=== PATIENT | male | born 1970 | race Caucasian/White ===

== ENCOUNTER 2021-07-23 09:03 | Day surgery (SDC) | payer OTHER ==
[~2021-07-23] VITALS: Ht 179.1 cm; Wt 89.4 kg
[2021-07-23] MEDS ORDERED: DERMASARRA TP (09:21)
[2021-07-23] MEDS ORDERED: ZYRTEC 10MG10 MG PO (09:22)
[2021-07-23] MEDS ORDERED: HCTZ 25MG TAB25 MG PO (09:22)
[2021-07-23] MEDS ORDERED: NEXIUM 40MG40 MG PO (09:22)
[2021-07-23] MEDS ORDERED: ZOCOR 20MG20 MG PO (09:23)
[2021-07-23] MEDS ORDERED: ZTLIDO1 EACH TP (09:23)
[2021-07-23] MEDS ORDERED: ONE-A-DAY ESSE1 EACH PO (09:23)
[2021-07-23] MEDS ORDERED: ZOFRAN8 MG PO (09:23)
[2021-07-23] MEDS ORDERED: COZAAR100 MG PO (09:23)
[2021-07-23] MEDS ORDERED: FLOMAX 0.40.4 MG/CAP PO (09:24)
[2021-07-23 10:14] VITALS: BP 119/75; PULSE 67; TEMP 97.5
[2021-07-23 10:41] VITALS: BP 102/73; PULSE 64; TEMP 97.3
--- NOTE | 2021-07-23 10:41 | NUR ---
PATIENT TRANSPORTED PER CART FROM GI SUITE TO BAY 6 ACCOMPANIED BY ENDO RN. MONITORS APPLIED. VSS ON ROOM AIR. IN ROOM. PATIENT TALKS WITH STAFF AND . DENIES DISCOMFORT AND NAUSEA. VERBALREPORT RECEIVED.
[2021-07-23 11:00] VITALS: BP 112/73; PULSE 62
--- NOTE | 2021-07-23 11:00 | NUR ---
VSS ON ROOM AIR. PATIENT TOLERATES FOOD AND DRINK WITHOUT PROBLEMS. TALKS WITH . GIVEN A SECOND MUFFIN.
[2021-07-23 11:15] VITALS: BP 110/65; PULSE 64
--- NOTE | 2021-07-23 11:16 | NUR ---
VSS ON ROOM AIR. PATIENT AND TALKING AND WATCHING TV. DENIES DISCOMFORT. DISCHARGE INSTRUCTIONS GIVEN VERBAL AND DISCHARGE PACKET PROVIDED TO . QUESTIONS ANSWERED AND PATIENT VOICED UNDERSTANDING.
[2021-07-23 11:30] VITALS: BP 109/63; PULSE 56
--- NOTE | 2021-07-23 11:50 | NUR ---
DR MANLEY IN ROOM AND SPEAKS WITH PATIENT AND . PATIENT CHANGES INTO STREET CLOTHES. PATIENT DISCHARGED PER WHEEL CHAIR ACCOMPANIED BY AMB RN TO PRIVATE VECHILE DRIVEN BY .
== END 2021-07-23 11:15 | disposition home or self-care (01) ==
LOC: SDCO 09:03
DX: Z12.11 Encounter for screening for malignant neoplasm of colon (principal); K22.70 Barrett's esophagus without dysplasia; K21.9 Gastro-esophageal reflux disease without esophagitis; I10 Essential (primary) hypertension; E78.5 Hyperlipidemia, unspecified; F32.9 Major depressive disorder, single episode, unspecified; F41.9 Anxiety disorder, unspecified; M19.90 Unspecified osteoarthritis, unspecified site; Z86.010 Personal history of colon polyps
CPT/HCPCS: J2704

== ENCOUNTER 2024-09-06 08:51 | Day surgery (SDC) | payer OTHER ==
[~2024-09-06] VITALS: Ht 179.1 cm; Wt 86.1 kg
[~2024-09-06 08:51] MED LIST: COZAAR100 MG PO; DERMASARRA TP; FLOMAX 0.40.4 MG/CAP PO; HCTZ 25MG TAB25 MG PO; LR 1,000 ML IV SCH; NEXIUM 40MG40 MG PO; ONE-A-DAY ESSE1 EACH PO; Ondansetron 4 MG/2 ML VIAL IV PRN; ZOCOR 20MG20 MG PO; ZOFRAN8 MG PO; ZTLIDO1 EACH TP; ZYRTEC 10MG10 MG PO
[2024-09-06 09:29] VITALS: BP 135/85; PULSE 77; TEMP 97.8
--- NOTE | 2024-09-06 09:34 | NUR ---
Patient admitted to [facility]. Admission assessments complete. Consent signed. Pharmacy, allergies, and medications confirmed. VSS. 20G Iv inserted into RAC on second attempt. forrest to bedside. Call light within reach. Denies complaints.
[2024-09-06] MEDS ORDERED: Lidocaine PF 2% (20 MG/ML) 5 ML VIAL ONE (10:23)
[2024-09-06 10:50] VITALS: BP 112/78; PULSE 78; TEMP 98.4
--- NOTE | 2024-09-06 10:50 | NUR ---
RETURNS TO ROOM 9 PER CART AND TRANSFERS FROM CART TO RECLINER. IVF INFUSING. TAKING JUICE. DENIES DIFFICULTY SWALLOWING OR NAUSEA. CALL LIGHT IN REACH. 1051 DR. MANLEY HERE AND TALKS WITH THE PATIENT. ALL QUESTIONS ANSWERED.
[2024-09-06 11:00] VITALS: BP 126/71; PULSE 72
--- NOTE | 2024-09-06 11:00 | NUR ---
RESTING AND TOLERATES SNACK. CONTINUES TO DENY DIFFICULTY SWALLOWING. 1110 DISCHARGE INSTRUCTIONS GIVEN AND VOICES UNDERSTANDING OF THESE. 1113 IV DISCONTINUED AND SITE IS FREE OF REDNESS. PATIENT DRESSING. 1120 PATIENT DISCHARGED TO HOME DRIVEN BY SPOUSE. TAKEN TO CAR PER WHEELCHAIR AND ASSISTED INTO VEHICLE.
[2024-09-06] MEDS ORDERED: VOLTAREN GEL 1%1 TU TP (11:28)
[2024-09-06] MEDS ORDERED: IBU800 M1 PO (11:28)
[2024-09-06] MEDS ORDERED: MAG-OX 400400 MG/TAB PO (11:29)
[2024-09-06] MEDS ORDERED: K-DUR20 MEQ PO (11:30)
[2024-09-06] MEDS ORDERED: KLOR-CON M2020 MEQ PO (11:31)
[2024-09-06] MEDS ORDERED: NEXIUM 40MG40 MG PO (11:32)
[2024-09-06] MEDS ORDERED: FLEXERIL 1010 MG/TAB PO (11:34)
[2024-09-06] MEDS ORDERED: CELEBREX 200MG200 MG PO (11:34)
== END 2024-09-06 11:20 | disposition home or self-care (01) ==
LOC: SDCO 08:51
DX: K22.70 Barrett's esophagus without dysplasia (principal); K21.9 Gastro-esophageal reflux disease without esophagitis; G47.33 Obstructive sleep apnea (adult) (pediatric); Z85.028 Personal history of other malignant neoplasm of stomach; Z86.0100 Personal history of colon polyps, unspecified
CPT/HCPCS: J2704; J7120